=== PATIENT | female | born 1965 | race Caucasian/White ===

== ENCOUNTER 2016-05-22 15:38 | Emergency (ER) | payer MEDICARE, MEDICAID ==
--- NOTE | 2016-05-22 21:09 | RAD ---
CHEST TWO VIEWS 05/22/2016 COMPARISON: 10/22/2015 FINDINGS: The heart is normal in size. The lungs are hyperexpanded, consistent with a history of COPD. No ac little shell tribe infiltrate is appreciated. No effusions are seen. The mediastinum is unremarkable. IMPRESSION: Chronic obstructive pulmonary disease, but no acute findings. POS: HOME
== END 2016-05-22 16:30 | disposition home or self-care (01) ==
LOC: BURERS 15:38
DX: B34.9 Viral infection, unspecified (principal); J44.9 Chronic obstructive pulmonary disease, unspecified; F17.210 Nicotine dependence, cigarettes, uncomplicated
CPT/HCPCS: 71020; 99283

== ENCOUNTER 2016-06-20 15:23 | Outpatient (CLI) | payer MEDICARE, MEDICAID ==
[2016-06-20 15:41] LABS: #Basophils 0.1 thou/uL (0.0-0.2); #Eosinphils 0.1 thou/uL (0.0-0.7); #Lymphocytes 1.9 thou/uL (1.20-3.40); #Monocytes 0.9 thou/uL (0.11-0.59); #Neutrophils 4.8 thou/uL (1.40-6.50); %Basophils 1.9 % (0.0-1.0); %Eosinophils 0.8 % (0.0-10.0); %Lymphocytes 24.4 % (21.0-51.0); %Monocytes 11.3 % (0.0-10.0); %Neutrophils 61.6 % (42.0-75.0); Hemoglobin 16.5 g/dL (12.0-16.0); Mean Corpuscular HGB CONC 33.9 g/dL (32.0-36.0); Mean Corpuscular Hemoglobin 33.5 pg (27.0-31.0); Mean Corpuscular Volume 98.7 fl (81.0-99.0); Mean Platelet Volume 6.7 fL (7.4-10.4); Platelet Count 292 thou/uL (130-400); RBC Distribution Width 12.1 % (11.5-14.5); Red Blood Cell (RBC) Count 4.92 mill/uL (4.20-5.40); White Blood Cell (WBC) Count 7.8 thou/uL (4.8-10.8)
[2016-06-20 16:01] LABS: ALT (SGPT) 18 U/L (0-55); AST (SGOT) 22 U/L (5-34); Albumin 4.6 g/dL (3.5-5.0); Alkaline Phosphatase 102 U/L (40-150); Anion Gap 14 mmol/L (10-20); BUN (Urea Nitrogen) 6 mg/dL (7.0-18.7); Bilirubin, Total 0.4 mg/dL (0.2-1.2); Calc. Creatinine Clearance 0 mL/min (70-130); Calcium 9.6 mg/dL (7.8-10.44); Carbon Dioxide 28 mmol/L (22-29); Cardiac Risk 4.1 (Less than 4.5); Chloride 99 mmol/L (98-107); Cholesterol 205 mg/dL (< 200 Desired); Estimated GFR-MDRD Greater than 90; Globulin 2.2 g/dL (2.4-3.5); Glucose 82 mg/dL (70-105); HDL Cholesterol 50 mg/dL (>60 Neg Risk); LDL Cholesterol, Calculated 137 mg/dL; Potassium 5.2 mmol/L (3.5-5.1); Protein, Total 6.8 g/dL (6.0-8.3); Sodium 136 mmol/L (136-145); Triglycerides 92 mg/dL (Less than 150)
[2016-06-20 16:36] LABS: Thyroid Stimulating Hormone 1.7694 uIU/mL (0.35-4.94); Vitamin D, 25 Hydroxy 22.1 ng/mL (> 30.0)
== END 2016-06-20 15:24 ==
LOC: HPCALD 15:23
PROVIDERS: ATTEND Family Medicine
DX: Z13.6 Encounter for screening for cardiovascular disorders (principal); E55.9 Vitamin D deficiency, unspecified; I10 Essential (primary) hypertension; R53.83 Other fatigue; Z79.899 Other long term (current) drug therapy
CPT/HCPCS: 36415; 80053; 80061; 82306; 82607; 84443; 85025

== ENCOUNTER 2016-12-01 19:06 | Emergency (ER) | payer MEDICARE, MEDICAID ==
[2016-12-01] MEDS ORDERED: Cyclobenzaprine 10 MG TAB ONE (19:31)
== END 2016-12-01 19:36 | disposition home or self-care (01) ==
LOC: BURERS 19:06
DX: G44.209 Tension-type headache, unspecified, not intractable (principal); J44.9 Chronic obstructive pulmonary disease, unspecified; F32.9 Major depressive disorder, single episode, unspecified; F41.9 Anxiety disorder, unspecified; F17.210 Nicotine dependence, cigarettes, uncomplicated
CPT/HCPCS: 99283

== ENCOUNTER 2017-02-10 12:36 | Emergency (ER) | payer MEDICARE, MEDICAID ==
[2017-02-10] MEDS ORDERED: methylPREDNISolone Sod Succ/PF 125 MG/2 ML VIAL ONE (13:06)
[2017-02-10 13:16] LABS: #Basophils 0.2 thou/uL (0.0-0.2); #Lymphocytes 1.6 thou/uL (1.20-3.40); #Neutrophils 5.9 thou/uL (1.40-6.50); %Basophils 1.8 % (0.0-1.0); %Eosinophils 0.1 % (0.0-10.0); %Monocytes 11.2 % (0.0-10.0); Hemoglobin 16.1 g/dL (12.0-16.0); Mean Corpuscular HGB CONC 33.6 g/dL (32.0-36.0); Mean Corpuscular Hemoglobin 32.5 pg (27.0-31.0); Mean Corpuscular Volume 96.6 fl (81.0-99.0); Mean Platelet Volume 6.1 fL (7.4-10.4); Platelet Count 270 thou/uL (130-400); RBC Distribution Width 11.7 % (11.5-14.5); Red Blood Cell (RBC) Count 4.97 mill/uL (4.20-5.40); White Blood Cell (WBC) Count 8.6 thou/uL (4.8-10.8)
[2017-02-10 13:34] LABS: CKMB 1.7 ng/mL (0-6.6); Troponin I Less than 0.010 ng/mL (< 0.028)
--- NOTE | 2017-02-10 14:02 | RAD ---
CHEST 2 VIEWS: Date: 02/10/17 HISTORY: Dyspnea. COMPARISON: Chest dated 05/22/16. FINDINGS: Lungs are hyperinflated. There is scarring in both lung apices. Large bulla right upper lobe. There is opacity in the left lung base. IMPRESSION: 1. COPD. 2. Opacity left lung base may represent scarring versus less likely an infiltrate. Follow-up recomme nded. POS: [facility]
== END 2017-02-10 14:00 | disposition home or self-care (01) ==
LOC: BURERS 12:36
DX: J44.1 Chronic obstructive pulmonary disease with (acute) exacerbation (principal); F41.9 Anxiety disorder, unspecified; F32.9 Major depressive disorder, single episode, unspecified; F17.210 Nicotine dependence, cigarettes, uncomplicated
CPT/HCPCS: 71020; 82553; 83880; 84484; 85025; 94640; 96374; J2930; J7620

== ENCOUNTER 2017-03-24 11:56 | Inpatient (IN) | payer MEDICARE, MEDICAID ==
[2017-03-24] MEDS ORDERED: Cyclobenzaprine 10 MG TAB PO PRN (17:23)
[2017-03-24] MEDS ORDERED: Albuterol Sulfate 2.5 mg/3 ml Neb NEB PRN ×2 (17:23)
[2017-03-24] MEDS ORDERED: Calcium Carbonate 500 MG ChewTAB PO PRN (17:23)
[2017-03-24] MEDS ORDERED: PROVENTIL INHALER 6.7 G (200 INHALATIONS) INH PRN (17:23)
[2017-03-24] MEDS ORDERED: Lidocaine Viscous Sol 2% 15 ml UD Cup SSW PRN (17:23)
[2017-03-24] MEDS ORDERED: Loperamide HCl 2 MG CAP PO SCH (17:30)
[2017-03-24] MEDS ORDERED: ALPRAZolam 0.5 MG TAB PO PRN (17:36)
[2017-03-24] MEDS: Magnesium Oxide 400 MG TAB PO SCH (21:28)
[2017-03-24] MEDS: guaiFENesin ER 600 MG TAB PO SCH (21:28)
[2017-03-24] MEDS: Gabapentin 300 MG CAP PO SCH (21:29)
[2017-03-24] MEDS: Famotidine 20 MG TAB PO SCH (21:30)
[2017-03-24] MEDS: Vancomycin HCl 750 MG in Sodium Chloride 0.9% 250 ML 250 ML IVPB SCH (21:30)
[2017-03-24] MEDS: Megestrol Acetate 400 MG/10 ML UDCUP PO SCH (21:33)
[2017-03-24] MEDS: Mometasone/Formoterol 60 PUFF AER INH SCH (22:21)
[2017-03-24] MEDS ORDERED: Sodium Chloride 0.9% 10 ML ONE (22:42)
[2017-03-25] MEDS: Vancomycin HCl 750 MG in Sodium Chloride 0.9% 250 ML 250 ML IVPB SCH ×4 (02:19→21:07)
[2017-03-25] MEDS: Mometasone/Formoterol 60 PUFF AER INH SCH ×2 (06:16→18:15)
[2017-03-25] MEDS ORDERED: Sodium Chloride 0.9% 10 ML ONE (06:42)
[2017-03-25 07:14] LABS: Hemoglobin 10.8 g/dL (12.0-16.0); Mean Corpuscular HGB CONC 35.1 g/dL (32.0-36.0); Mean Corpuscular Volume 94.2 fl (81.0-99.0); Mean Platelet Volume 4.5 fL (7.4-10.4); Platelet Count 527 thou/uL (130-400); RBC Distribution Width 14.2 % (11.5-14.5); Red Blood Cell (RBC) Count 3.28 mill/uL (4.20-5.40); White Blood Cell (WBC) Count 23.1 thou/uL (4.8-10.8)
[2017-03-25 07:20] LABS: ALT (SGPT) 67 U/L (8-55); AST (SGOT) 29 U/L (5-34); Albumin 2.5 g/dL (3.5-5.0); Alkaline Phosphatase 55 U/L (40-150); Anion Gap 11 mmol/L (10-20); BUN (Urea Nitrogen) 11 mg/dL (7.0-18.7); Bilirubin, Total 0.3 mg/dL (0.2-1.2); Calc. Creatinine Clearance 0 mL/min (70-130); Calcium 8.2 mg/dL (7.8-10.44); Carbon Dioxide 30 mmol/L (22-29); Chloride 96 mmol/L (98-107); Estimated GFR-MDRD Greater than 90; Globulin 2.2 g/dL (2.4-3.5); Glucose 76 mg/dL (70-105); Potassium 3.9 mmol/L (3.5-5.1); Protein, Total 4.7 g/dL (6.0-8.3); Sodium 133 mmol/L (136-145)
[2017-03-25 07:33] LABS: MDiff Complete? YES
[2017-03-25 07:34] LABS: Band 4 % (5-11); Eosinophils 1 % (0-10); Lymphocytes 13 % (21-51); Metamyelocyte 2 % (0-0); Monocytes 4 % (0-10); Neutrophil 75 % (42-75); PLT Morphology Comment Appears Increased; RBC Morphology Normal; Reactive Lymphocytes 1 % (0-10); Vacuoles SLIGHT
[2017-03-25] MEDS ORDERED: Spiriva 18 MCG CAP (Box of 5 Caps) INH SCH (09:00)
[2017-03-25] MEDS: Famotidine 20 MG TAB PO SCH ×2 (09:33→21:13)
[2017-03-25] MEDS: guaiFENesin ER 600 MG TAB PO SCH ×2 (09:33→21:14)
[2017-03-25] MEDS: Fluconazole 100 MG TAB PO SCH (09:34)
[2017-03-25] MEDS: Magnesium Oxide 400 MG TAB PO SCH ×2 (09:34→21:16)
[2017-03-25] MEDS: Gabapentin 300 MG CAP PO SCH ×3 (09:34→21:16)
[2017-03-25] MEDS: Megestrol Acetate 400 MG/10 ML UDCUP PO SCH ×2 (09:35→21:16)
[2017-03-25 14:32] LABS: Vancomycin, Trough 15.2 ug/mL
[2017-03-25] MEDS ORDERED: Prevnar 13-Val Conj/PF 0.5 ML SYRINGE IM ONE (21:00)
[2017-03-26] MEDS: Vancomycin HCl 750 MG in Sodium Chloride 0.9% 250 ML 250 ML IVPB SCH ×4 (02:38→21:16)
[2017-03-26] MEDS: Mometasone/Formoterol 60 PUFF AER INH SCH ×2 (06:06→18:41)
[2017-03-26] MEDS: guaiFENesin ER 600 MG TAB PO SCH ×2 (08:22→21:18)
[2017-03-26] MEDS: Famotidine 20 MG TAB PO SCH ×2 (08:23→21:18)
[2017-03-26] MEDS: Magnesium Oxide 400 MG TAB PO SCH ×2 (08:23→21:17)
[2017-03-26] MEDS: Acetaminophen 325 MG TAB PO PRN (08:23)
[2017-03-26] MEDS: Fluconazole 100 MG TAB PO SCH (08:23)
[2017-03-26] MEDS: Gabapentin 300 MG CAP PO SCH ×3 (08:23→21:17)
[2017-03-26] MEDS: Megestrol Acetate 400 MG/10 ML UDCUP PO SCH ×2 (08:24→21:17)
[2017-03-26] MEDS: Lorazepam 0.5 MG TAB PO PRN ×2 (08:25→17:34)
--- NOTE | 2017-03-26 11:12 | RAD ---
CHEST 2 VIEWS: DATE: 03/26/17. FINDINGS: Comparison is made with the 03/23 study from [facility]. PA and lateral views today show a right l ower lobe infiltrate. It is more consistent with pneumonia than atelectasis. There is a small right pleural effusion. COPD is noted as usual. The lungs are otherwise clear. No pneumothorax is seen on today's study. A right central line remains in place. The heart size is normal. The trachea is midline. IMPRESSION: 1. Right lower lobe infiltrate more consistent with pneumonia than atelectasis. There is also a sma ll right pleural effusion today. 2. Chronic obstructive pulmonary disease. 3. No pneumothorax seen. POS: HOME
[2017-03-26] MEDS ORDERED: Polyethylene Glycol 3350 17 GM Packet PO PRN (12:04)
[2017-03-27] MEDS: Lorazepam 0.5 MG TAB PO PRN (00:52)
[2017-03-27] MEDS: Vancomycin HCl 750 MG in Sodium Chloride 0.9% 250 ML 250 ML IVPB SCH ×2 (00:52→08:49)
[2017-03-27] MEDS: Acetaminophen 325 MG TAB PO PRN (00:52)
[2017-03-27] MEDS: Mometasone/Formoterol 60 PUFF AER INH SCH ×2 (05:41→20:45)
[2017-03-27] MEDS: Megestrol Acetate 400 MG/10 ML UDCUP PO SCH ×2 (08:49→21:44)
[2017-03-27] MEDS: guaiFENesin ER 600 MG TAB PO SCH ×2 (08:51→21:44)
[2017-03-27] MEDS: Famotidine 20 MG TAB PO SCH ×2 (08:51→21:44)
[2017-03-27] MEDS: Magnesium Oxide 400 MG TAB PO SCH ×2 (08:51→21:44)
[2017-03-27] MEDS: Gabapentin 300 MG CAP PO SCH ×3 (08:52→21:44)
[2017-03-27] MEDS: Fluconazole 100 MG TAB PO SCH (08:52)
[2017-03-27] MEDS ORDERED: ALPRAZolam 0.5 MG TAB PO PRN (10:45)
[2017-03-27] MEDS ORDERED: Cyclobenzaprine 10 MG TAB PO PRN (10:45)
[2017-03-27] MEDS ORDERED: PROVENTIL INHALER 6.7 G (200 INHALATIONS) INH PRN (10:45)
[2017-03-27] MEDS: VANCOMYCIN HCL IVPB SCH ×2 (14:18→21:39)
[2017-03-27] MEDS: SODIUM CHLORIDE 0.9% IVPB SCH ×2 (14:18→21:39)
[2017-03-28] MEDS: VANCOMYCIN HCL IVPB SCH ×3 (02:04→15:13)
[2017-03-28] MEDS: SODIUM CHLORIDE 0.9% IVPB SCH ×3 (02:04→15:13)
[2017-03-28] MEDS: Mometasone/Formoterol 60 PUFF AER INH SCH ×2 (06:27→17:35)
[2017-03-28] MEDS: Lorazepam 0.5 MG TAB PO PRN ×2 (06:27→15:25)
[2017-03-28] MEDS: Magnesium Oxide 400 MG TAB PO SCH ×2 (09:10→21:43)
[2017-03-28] MEDS: guaiFENesin ER 600 MG TAB PO SCH ×2 (09:10→21:42)
[2017-03-28] MEDS: Megestrol Acetate 400 MG/10 ML UDCUP PO SCH ×2 (09:10→23:00)
[2017-03-28] MEDS: Fluconazole 100 MG TAB PO SCH (09:11)
[2017-03-28] MEDS: Gabapentin 300 MG CAP PO SCH ×3 (09:12→21:43)
[2017-03-28] MEDS: Famotidine 20 MG TAB PO SCH ×2 (09:12→21:43)
[2017-03-28] MEDS ORDERED: Cepastat Lozenges 1 LOZ PO PRN (11:45)
[2017-03-28 13:30] LABS: Vancomycin, Trough 12.1 ug/mL
[2017-03-28] MEDS: Vancomycin HCl 1 GM in Sodium Chloride 0.9% 250 ML 250 ML IVPB SCH ×2 (15:28→21:39)
[2017-03-29] MEDS: Vancomycin HCl 1 GM in Sodium Chloride 0.9% 250 ML 250 ML IVPB SCH ×2 (03:23→11:40)
[2017-03-29 08:42] LABS: Vancomycin, Trough 11.3 ug/mL
[2017-03-29] MEDS: Famotidine 20 MG TAB PO SCH ×2 (10:26→21:29)
[2017-03-29] MEDS: Mometasone/Formoterol 60 PUFF AER INH SCH ×3 (10:26→18:31)
[2017-03-29] MEDS: Fluconazole 100 MG TAB PO SCH (10:27)
[2017-03-29] MEDS: Gabapentin 300 MG CAP PO SCH ×3 (10:27→21:29)
[2017-03-29] MEDS: guaiFENesin ER 600 MG TAB PO SCH ×2 (10:28→21:29)
[2017-03-29] MEDS: Megestrol Acetate 400 MG/10 ML UDCUP PO SCH ×2 (10:28→21:29)
[2017-03-29] MEDS: Magnesium Oxide 400 MG TAB PO SCH ×2 (10:28→21:29)
[2017-03-29] MEDS: Lorazepam 0.5 MG TAB PO PRN (10:31)
[2017-03-29] MEDS: Vancomycin HCl 750 MG in Sodium Chloride 0.9% 250 ML 250 ML IVPB SCH ×3 (10:34→21:40)
[2017-03-29] MEDS ORDERED: Vancomycin HCl 500 MG in Sodium Chloride 0.9% 100 ML IVPB SCH (11:00)
[2017-03-29] MEDS ORDERED: SODIUM CHLORIDE 0.9% IVPB SCH (11:00)
[2017-03-29] MEDS ORDERED: VANCOMYCIN HCL IVPB SCH (11:00)
[2017-03-29] MEDS: SODIUM CHLORIDE 0.9% IVPB SCH ×2 (16:13→21:49)
[2017-03-29] MEDS: VANCOMYCIN HCL IVPB SCH ×2 (16:13→21:49)
[2017-03-29] MEDS: Acetaminophen 325 MG TAB PO PRN (18:31)
--- NOTE | 2017-03-29 20:06 | RAD ---
CHEST TWO VIEWS 03/29/17 Comparison is made with the 03/26 study. Again seen is a dense right lower consolidation that is presumably pneumonia. It has perhaps improved very slightly in the interval, but the changes are small. No new infiltrates are seen. there is stil l a small amount of pleural fluid on the right. No pneumothorax is seen today. The heart size normal. COPD predominates. IMPRESSION: Right lower lobe consolidation. Any improvement since 03/26 is minimal. POS: HOME
[2017-03-30 03:29] LABS: Vancomycin, Trough 18.6 ug/mL
[2017-03-30 03:33] LABS: #Basophils 0.2 thou/uL (0.0-0.2); #Lymphocytes 1.7 thou/uL (1.20-3.40); #Monocytes 0.7 thou/uL (0.11-0.59); #Neutrophils 8.6 thou/uL (1.40-6.50); %Basophils 1.8 % (0.0-1.0); %Eosinophils 0.4 % (0.0-10.0); %Lymphocytes 15.4 % (21.0-51.0); %Monocytes 6.2 % (0.0-10.0); %Neutrophils 76.2 % (42.0-75.0); Hemoglobin 8.9 g/dL (12.0-16.0); Mean Corpuscular HGB CONC 34.1 g/dL (32.0-36.0); Mean Corpuscular Hemoglobin 31.4 pg (27.0-31.0); Mean Corpuscular Volume 92.1 fl (81.0-99.0); Mean Platelet Volume 4.8 fL (7.4-10.4); Platelet Count 360 thou/uL (130-400); RBC Distribution Width 13.8 % (11.5-14.5); Red Blood Cell (RBC) Count 2.84 mill/uL (4.20-5.40); White Blood Cell (WBC) Count 11.3 thou/uL (4.8-10.8)
[2017-03-30 03:34] LABS: ALT (SGPT) 108 U/L (8-55); AST (SGOT) 58 U/L (5-34); Albumin 2.6 g/dL (3.5-5.0); Alkaline Phosphatase 66 U/L (40-150); Anion Gap 12 mmol/L (10-20); BUN (Urea Nitrogen) 8 mg/dL (7.0-18.7); Bilirubin, Total 0.2 mg/dL (0.2-1.2); Calc. Creatinine Clearance 100 mL/min (70-130); Calcium 8.2 mg/dL (7.8-10.44); Carbon Dioxide 25 mmol/L (22-29); Chloride 98 mmol/L (98-107); Estimated GFR-MDRD Greater than 90; Globulin 2.5 g/dL (2.4-3.5); Glucose 135 mg/dL (70-105); Potassium 3.9 mmol/L (3.5-5.1); Protein, Total 5.1 g/dL (6.0-8.3); Sodium 131 mmol/L (136-145)
[2017-03-30] MEDS: Vancomycin HCl 750 MG in Sodium Chloride 0.9% 250 ML 250 ML IVPB SCH ×4 (04:18→21:25)
[2017-03-30] MEDS: VANCOMYCIN HCL IVPB SCH ×4 (04:18→23:12)
[2017-03-30] MEDS: SODIUM CHLORIDE 0.9% IVPB SCH ×4 (04:18→23:12)
[2017-03-30] MEDS: Mometasone/Formoterol 60 PUFF AER INH SCH ×2 (06:48→18:31)
[2017-03-30] MEDS: Megestrol Acetate 400 MG/10 ML UDCUP PO SCH ×2 (09:41→21:28)
[2017-03-30] MEDS: Lorazepam 0.5 MG TAB PO PRN (09:41)
[2017-03-30] MEDS: Fluconazole 100 MG TAB PO SCH (09:43)
[2017-03-30] MEDS: Famotidine 20 MG TAB PO SCH ×2 (09:43→21:27)
[2017-03-30] MEDS: guaiFENesin ER 600 MG TAB PO SCH ×2 (09:43→21:26)
[2017-03-30] MEDS: Gabapentin 300 MG CAP PO SCH ×3 (09:44→21:27)
[2017-03-30] MEDS: Magnesium Oxide 400 MG TAB PO SCH ×2 (09:44→21:27)
[2017-03-31 03:43] LABS: Vancomycin, Trough 18.1 ug/mL
[2017-03-31] MEDS: Vancomycin HCl 750 MG in Sodium Chloride 0.9% 250 ML 250 ML IVPB SCH ×4 (04:19→22:11)
[2017-03-31] MEDS: SODIUM CHLORIDE 0.9% IVPB SCH ×4 (04:20→22:12)
[2017-03-31] MEDS: VANCOMYCIN HCL IVPB SCH ×4 (04:20→22:12)
[2017-03-31] MEDS: Mometasone/Formoterol 60 PUFF AER INH SCH ×2 (06:36→19:02)
[2017-03-31] MEDS: Megestrol Acetate 400 MG/10 ML UDCUP PO SCH ×2 (09:26→22:11)
[2017-03-31] MEDS: Magnesium Oxide 400 MG TAB PO SCH ×2 (09:28→22:13)
[2017-03-31] MEDS: Famotidine 20 MG TAB PO SCH ×2 (09:28→22:13)
[2017-03-31] MEDS: Gabapentin 300 MG CAP PO SCH ×3 (09:28→22:12)
[2017-03-31] MEDS: guaiFENesin ER 600 MG TAB PO SCH ×2 (09:28→22:13)
[2017-03-31] MEDS: Acetaminophen 325 MG TAB PO PRN (10:57)
[2017-04-01] MEDS: Vancomycin HCl 750 MG in Sodium Chloride 0.9% 250 ML 250 ML IVPB SCH ×3 (03:44→15:58)
[2017-04-01] MEDS: SODIUM CHLORIDE 0.9% IVPB SCH ×2 (03:45→09:55)
[2017-04-01] MEDS: VANCOMYCIN HCL IVPB SCH ×2 (03:45→09:55)
[2017-04-01 04:35] LABS: #Basophils 0.1 thou/uL (0.0-0.2); #Lymphocytes 1.9 thou/uL (1.20-3.40); #Monocytes 0.9 thou/uL (0.11-0.59); #Neutrophils 10.4 thou/uL (1.40-6.50); %Basophils 1.1 % (0.0-1.0); %Eosinophils 0.3 % (0.0-10.0); %Monocytes 6.7 % (0.0-10.0); %Neutrophils 77.9 % (42.0-75.0); Mean Corpuscular HGB CONC 34.6 g/dL (32.0-36.0); Mean Corpuscular Hemoglobin 32.1 pg (27.0-31.0); Mean Corpuscular Volume 92.7 fl (81.0-99.0); Mean Platelet Volume 4.7 fL (7.4-10.4); Platelet Count 325 thou/uL (130-400); RBC Distribution Width 14.2 % (11.5-14.5); Red Blood Cell (RBC) Count 2.81 mill/uL (4.20-5.40); White Blood Cell (WBC) Count 13.4 thou/uL (4.8-10.8)
[2017-04-01 04:43] LABS: ALT (SGPT) 105 U/L (8-55); AST (SGOT) 41 U/L (5-34); Albumin 2.7 g/dL (3.5-5.0); Alkaline Phosphatase 67 U/L (40-150); Anion Gap 14 mmol/L (10-20); BUN (Urea Nitrogen) 7 mg/dL (7.0-18.7); Bilirubin, Total 0.2 mg/dL (0.2-1.2); Calc. Creatinine Clearance 102 mL/min (70-130); Calcium 8.5 mg/dL (7.8-10.44); Carbon Dioxide 25 mmol/L (22-29); Chloride 94 mmol/L (98-107); Estimated GFR-MDRD Greater than 90; Globulin 2.8 g/dL (2.4-3.5); Glucose 100 mg/dL (70-105); Potassium 3.9 mmol/L (3.5-5.1); Protein, Total 5.5 g/dL (6.0-8.3); Sodium 129 mmol/L (136-145)
[2017-04-01] MEDS: Mometasone/Formoterol 60 PUFF AER INH SCH ×2 (06:18→18:25)
--- NOTE | 2017-04-01 07:38 | RAD ---
PORTABLE CHEST: Date: 04/01/17 An AP portable film at 0533 hours is compared with the 03/29/17 study. There continues to be really l ittle change. There has been no improvement over the interval. There is still a right lower lobe infi ltrate which has not cleared. The left lung remains clear. COPD is present as usual. Heart size is no rmal. There are no congestive changes. The right central line remains in place. IMPRESSION: No improvement since 03/29/17. POS: HOME
[2017-04-01] MEDS: Megestrol Acetate 400 MG/10 ML UDCUP PO SCH ×2 (09:50→22:16)
[2017-04-01] MEDS: Gabapentin 300 MG CAP PO SCH ×3 (09:53→22:16)
[2017-04-01] MEDS: Famotidine 20 MG TAB PO SCH ×2 (09:53→22:16)
[2017-04-01] MEDS: guaiFENesin ER 600 MG TAB PO SCH ×2 (09:53→22:16)
[2017-04-01] MEDS: Magnesium Oxide 400 MG TAB PO SCH ×2 (09:53→22:16)
[2017-04-01] MEDS: Lorazepam 0.5 MG TAB PO PRN (11:40)
[2017-04-01] MEDS ORDERED: Linezolid 600 MG in Premix Bag 1 BAG IVPB SCH (21:00)
[2017-04-02] MEDS: Mometasone/Formoterol 60 PUFF AER INH SCH ×2 (06:38→18:18)
[2017-04-02] MEDS: Megestrol Acetate 400 MG/10 ML UDCUP PO SCH ×2 (08:57→21:59)
[2017-04-02] MEDS: Famotidine 20 MG TAB PO SCH ×2 (08:59→21:58)
[2017-04-02] MEDS: Linezolid 600 MG TAB PO SCH ×2 (08:59→21:58)
[2017-04-02] MEDS: guaiFENesin ER 600 MG TAB PO SCH ×2 (09:00→21:58)
[2017-04-02] MEDS: Gabapentin 300 MG CAP PO SCH ×3 (09:00→21:58)
[2017-04-02] MEDS: Magnesium Oxide 400 MG TAB PO SCH ×2 (09:01→21:58)
[2017-04-02] MEDS: Acetaminophen 325 MG TAB PO PRN (22:18)
[2017-04-03 02:36] VITALS: BMI 18.6
[2017-04-03] MEDS: Mometasone/Formoterol 60 PUFF AER INH SCH ×2 (06:46→17:21)
[2017-04-03] MEDS: Linezolid 600 MG TAB PO SCH ×2 (09:32→22:15)
[2017-04-03] MEDS: Famotidine 20 MG TAB PO SCH ×2 (09:33→22:14)
[2017-04-03] MEDS: Gabapentin 300 MG CAP PO SCH ×3 (09:33→22:14)
[2017-04-03] MEDS: Magnesium Oxide 400 MG TAB PO SCH ×2 (09:34→22:14)
[2017-04-03] MEDS: guaiFENesin ER 600 MG TAB PO SCH ×2 (09:34→22:14)
[2017-04-03] MEDS: Megestrol Acetate 400 MG/10 ML UDCUP PO SCH ×2 (09:35→22:14)
[2017-04-04] MEDS: Acetaminophen 325 MG TAB PO PRN (01:49)
[2017-04-04] MEDS: Mometasone/Formoterol 60 PUFF AER INH SCH ×2 (06:36→18:38)
[2017-04-04] MEDS: guaiFENesin ER 600 MG TAB PO SCH ×2 (09:40→22:09)
[2017-04-04] MEDS: Gabapentin 300 MG CAP PO SCH ×3 (09:40→22:10)
[2017-04-04] MEDS: Megestrol Acetate 400 MG/10 ML UDCUP PO SCH ×2 (09:40→22:10)
[2017-04-04] MEDS: Famotidine 20 MG TAB PO SCH ×2 (09:40→22:10)
[2017-04-04] MEDS: Magnesium Oxide 400 MG TAB PO SCH ×2 (09:40→22:10)
[2017-04-04] MEDS: Linezolid 600 MG TAB PO SCH ×2 (09:41→22:08)
[2017-04-04] MEDS: ALPRAZolam 0.5 MG TAB PO PRN (11:28)
[2017-04-04] MEDS: Lorazepam 0.5 MG TAB PO PRN (22:09)
[2017-04-05 05:16] LABS: Hemoglobin 9.2 g/dL (12.0-16.0); Mean Corpuscular Volume 95.1 fL (81.0-99.0); White Blood Cell (WBC) Count 11.9 thou/uL (4.8-10.8)
[2017-04-05 05:17] LABS: #Basophils 0.1 thou/uL (0.0-0.2); #Eosinphils 0.1 thou/uL (0.0-0.7); #Lymphocytes 2.3 thou/uL (1.20-3.40); #Monocytes 1.1 thou/uL (0.11-0.59); #Neutrophils 8.3 thou/uL (1.40-6.50); %Eosinophils 0.6 % (0.0-10.0); %Lymphocytes 19.5 % (21.0-51.0); %Monocytes 9.1 % (0.0-10.0); %Neutrophils 69.7 % (42.0-75.0); Mean Corpuscular HGB CONC 33.4 g/dL (32.0-36.0); Mean Corpuscular Hemoglobin 31.8 pg (27.0-31.0); Mean Platelet Volume 5.7 fL (7.4-10.4); Platelet Count 402 thou/uL (130-400); RBC Distribution Width 14.5 % (11.5-14.5)
[2017-04-05 05:24] LABS: ALT (SGPT) 113 U/L (8-55); AST (SGOT) 38 U/L (5-34); Albumin 2.9 g/dL (3.5-5.0); Alkaline Phosphatase 69 U/L (40-150); Anion Gap 15 mmol/L (10-20); BUN (Urea Nitrogen) 9 mg/dL (7.0-18.7); Bilirubin, Total 0.2 mg/dL (0.2-1.2); Calc. Creatinine Clearance 98 mL/min (70-130); Calcium 8.6 mg/dL (7.8-10.44); Carbon Dioxide 27 mmol/L (22-29); Chloride 93 mmol/L (98-107); Estimated GFR-MDRD Greater than 90; Globulin 2.9 g/dL (2.4-3.5); Glucose 132 mg/dL (70-105); Potassium 3.8 mmol/L (3.5-5.1); Protein, Total 5.8 g/dL (6.0-8.3); Sodium 131 mmol/L (136-145)
[2017-04-05 05:30] LABS: Anisocytosis SLIGHT = 6-15 cells (100X) (0-5/hpf)
[2017-04-05 05:31] LABS: PLT Morphology Comment Appears Increased
[2017-04-05] MEDS: Mometasone/Formoterol 60 PUFF AER INH SCH ×2 (06:22→18:31)
[2017-04-05] MEDS: guaiFENesin ER 600 MG TAB PO SCH ×2 (09:57→21:11)
[2017-04-05] MEDS: Megestrol Acetate 400 MG/10 ML UDCUP PO SCH ×2 (09:57→21:12)
[2017-04-05] MEDS: Famotidine 20 MG TAB PO SCH ×2 (09:58→21:11)
[2017-04-05] MEDS: Gabapentin 300 MG CAP PO SCH ×3 (09:58→21:10)
[2017-04-05] MEDS: Linezolid 600 MG TAB PO SCH ×2 (09:58→21:08)
[2017-04-05] MEDS: Magnesium Oxide 400 MG TAB PO SCH ×2 (09:58→21:09)
[2017-04-05] MEDS: ALPRAZolam 0.5 MG TAB PO PRN (09:58)
--- NOTE | 2017-04-05 19:50 | RAD ---
CHEST TWO VIEWS 04/05/17 Comparison is made with the 04/01 study. COPD is present as usual. There continues to be a large infiltrative area in the right lower lobe pos teriorly. Overall, it has not changed recently, though it is certainly better than it was in . The left lung remains relatively clear. There is no vascular congestion or edema. The heart size is normal. IMPRESSION: Little change in the dense right lower lobe consolidation over the last few days. POS: HOME
[2017-04-05] MEDS: Acetaminophen 325 MG TAB PO PRN (21:17)
[2017-04-06] MEDS: Mometasone/Formoterol 60 PUFF AER INH SCH ×2 (06:04→18:40)
[2017-04-06] MEDS: Megestrol Acetate 400 MG/10 ML UDCUP PO SCH ×2 (09:51→20:24)
[2017-04-06] MEDS: Linezolid 600 MG TAB PO SCH ×2 (09:53→20:26)
[2017-04-06] MEDS: Magnesium Oxide 400 MG TAB PO SCH ×2 (09:53→20:26)
[2017-04-06] MEDS: Famotidine 20 MG TAB PO SCH ×2 (09:53→20:26)
[2017-04-06] MEDS: Gabapentin 300 MG CAP PO SCH ×3 (09:54→20:26)
[2017-04-06] MEDS: guaiFENesin ER 600 MG TAB PO SCH ×2 (09:54→20:26)
[2017-04-06] MEDS: ALPRAZolam 0.5 MG TAB PO PRN (10:01)
[2017-04-06] MEDS: Acetaminophen 325 MG TAB PO PRN ×2 (11:02→20:31)
[2017-04-07 05:43] LABS: #Basophils 0.1 thou/uL (0.0-0.2); #Eosinphils 0.1 thou/uL (0.0-0.7); #Lymphocytes 2.2 thou/uL (1.20-3.40); #Monocytes 1.8 thou/uL (0.11-0.59); #Neutrophils 15.2 thou/uL (1.40-6.50); %Basophils 0.7 % (0.0-1.0); %Eosinophils 0.4 % (0.0-10.0); %Lymphocytes 11.3 % (21.0-51.0); %Monocytes 9.1 % (0.0-10.0); %Neutrophils 78.5 % (42.0-75.0); Hemoglobin 9.7 g/dL (12.0-16.0); Mean Corpuscular HGB CONC 32.9 g/dL (32.0-36.0); Mean Corpuscular Hemoglobin 31.5 pg (27.0-31.0); Mean Corpuscular Volume 95.6 fl (81.0-99.0); Mean Platelet Volume 5.8 fL (7.4-10.4); Platelet Count 460 thou/uL (130-400); RBC Distribution Width 15.2 % (11.5-14.5); Red Blood Cell (RBC) Count 3.09 mill/uL (4.20-5.40); White Blood Cell (WBC) Count 19.3 thou/uL (4.8-10.8)
[2017-04-07 05:56] LABS: ALT (SGPT) 111 U/L (8-55); AST (SGOT) 40 U/L (5-34); Alkaline Phosphatase 72 U/L (40-150); Anion Gap 14 mmol/L (10-20); BUN (Urea Nitrogen) 7 mg/dL (7.0-18.7); Bilirubin, Total 0.3 mg/dL (0.2-1.2); Calc. Creatinine Clearance 98 mL/min (70-130); Calcium 8.8 mg/dL (7.8-10.44); Carbon Dioxide 30 mmol/L (22-29); Chloride 94 mmol/L (98-107); Estimated GFR-MDRD Greater than 90; Glucose 98 mg/dL (70-105); Potassium 4.1 mmol/L (3.5-5.1); Sodium 134 mmol/L (136-145)
[2017-04-07] MEDS: Mometasone/Formoterol 60 PUFF AER INH SCH ×2 (06:15→18:30)
[2017-04-07] MEDS: Acetaminophen 325 MG TAB PO PRN ×2 (06:23→17:18)
[2017-04-07] MEDS: Megestrol Acetate 400 MG/10 ML UDCUP PO SCH ×2 (09:25→21:41)
[2017-04-07] MEDS: Gabapentin 300 MG CAP PO SCH ×3 (09:28→21:41)
[2017-04-07] MEDS: Famotidine 20 MG TAB PO SCH ×2 (09:28→21:42)
[2017-04-07] MEDS: Linezolid 600 MG TAB PO SCH ×2 (09:28→21:40)
[2017-04-07] MEDS: guaiFENesin ER 600 MG TAB PO SCH ×2 (09:29→21:40)
[2017-04-07] MEDS: Magnesium Oxide 400 MG TAB PO SCH ×2 (09:29→21:40)
[2017-04-07] MEDS: Fluconazole 100 MG TAB PO SCH (09:32)
[2017-04-07] MEDS: ALPRAZolam 0.5 MG TAB PO PRN (09:41)
[2017-04-08] MEDS: Acetaminophen 325 MG TAB PO PRN ×3 (05:13→20:53)
[2017-04-08] MEDS: Mometasone/Formoterol 60 PUFF AER INH SCH ×2 (06:19→19:16)
[2017-04-08] MEDS: Linezolid 600 MG TAB PO SCH ×2 (08:54→20:52)
[2017-04-08] MEDS: Magnesium Oxide 400 MG TAB PO SCH ×2 (08:55→20:53)
[2017-04-08] MEDS: guaiFENesin ER 600 MG TAB PO SCH ×2 (08:55→20:52)
[2017-04-08] MEDS: Megestrol Acetate 400 MG/10 ML UDCUP PO SCH ×2 (08:55→20:54)
[2017-04-08] MEDS: Gabapentin 300 MG CAP PO SCH ×3 (08:55→20:53)
[2017-04-08] MEDS: Famotidine 20 MG TAB PO SCH ×2 (08:55→20:53)
[2017-04-08] MEDS: Fluconazole 100 MG TAB PO SCH (08:56)
[2017-04-09] MEDS: Mometasone/Formoterol 60 PUFF AER INH SCH ×2 (06:10→18:49)
[2017-04-09] MEDS: Megestrol Acetate 400 MG/10 ML UDCUP PO SCH ×2 (09:48→21:07)
[2017-04-09] MEDS: Gabapentin 300 MG CAP PO SCH ×3 (09:48→21:10)
[2017-04-09] MEDS: Linezolid 600 MG TAB PO SCH ×2 (09:48→21:08)
[2017-04-09] MEDS: Magnesium Oxide 400 MG TAB PO SCH ×2 (09:49→21:08)
[2017-04-09] MEDS: Famotidine 20 MG TAB PO SCH ×2 (09:49→21:10)
[2017-04-09] MEDS: guaiFENesin ER 600 MG TAB PO SCH ×2 (09:50→21:09)
[2017-04-09] MEDS: Fluconazole 100 MG TAB PO SCH (09:50)
[2017-04-09] MEDS: ALPRAZolam 0.5 MG TAB PO PRN ×2 (09:55→21:14)
[2017-04-09] MEDS: Acetaminophen 325 MG TAB PO PRN ×2 (11:51→18:56)
[2017-04-10] MEDS: Acetaminophen 325 MG TAB PO PRN (03:57)
[2017-04-10 05:46] VITALS: BP 127/74; TEMP 99.2
[2017-04-10 05:47] LABS: #Basophils 0.1 thou/uL (0.0-0.2); #Eosinphils 0.1 thou/uL (0.0-0.7); #Lymphocytes 2.6 thou/uL (1.20-3.40); #Monocytes 1.7 thou/uL (0.11-0.59); #Neutrophils 13.4 thou/uL (1.40-6.50); %Basophils 0.7 % (0.0-1.0); %Eosinophils 0.4 % (0.0-10.0); %Lymphocytes 14.4 % (21.0-51.0); %Monocytes 9.2 % (0.0-10.0); %Neutrophils 75.2 % (42.0-75.0); Hemoglobin 9.5 g/dL (12.0-16.0); Mean Corpuscular HGB CONC 33.9 g/dL (32.0-36.0); Mean Corpuscular Hemoglobin 31.9 pg (27.0-31.0); Mean Platelet Volume 5.3 fL (7.4-10.4); Platelet Count 565 thou/uL (130-400); Red Blood Cell (RBC) Count 2.99 mill/uL (4.20-5.40); White Blood Cell (WBC) Count 17.9 thou/uL (4.8-10.8)
[2017-04-10 05:56] LABS: ALT (SGPT) 71 U/L (8-55); AST (SGOT) 34 U/L (5-34); Albumin 2.9 g/dL (3.5-5.0); Alkaline Phosphatase 67 U/L (40-150); Anion Gap 14 mmol/L (10-20); BUN (Urea Nitrogen) 6 mg/dL (7.0-18.7); Bilirubin, Total 0.4 mg/dL (0.2-1.2); Calc. Creatinine Clearance 97 mL/min (70-130); Calcium 8.7 mg/dL (7.8-10.44); Carbon Dioxide 27 mmol/L (22-29); Chloride 97 mmol/L (98-107); Estimated GFR-MDRD Greater than 90; Globulin 3.1 g/dL (2.4-3.5); Glucose 106 mg/dL (70-105); Sodium 134 mmol/L (136-145)
[2017-04-10] MEDS: Mometasone/Formoterol 60 PUFF AER INH SCH (06:18)
--- NOTE | 2017-04-10 07:32 | RAD ---
CHEST 2 VIEWS: DATE: 04/10/17. FINDINGS: Comparison is made with the 04/05 study. The right basilar infiltrate and density is increasing since 04/05. A minimal pleural effusion was present before. It is slightly larger today. Thus, the sylvester ent is worsening over time. The left lung remains clear. The heart is normal in size. There are no congestive changes. IMPRESSION: Worsening infiltrative changes and slight increase in pleural fluid on the right since 04/05. CODE T POS: HOME
--- NOTE | 2017-04-10 08:19 | DIS ---
DATE OF ADMISSION: 03/24/2017 DATE OF DISCHARGE: 04/10/2017 ADMISSION DIAGNOSES: Methicillin-resistant Staphylococcus aureus pneumonia, chronic obstructive pulmonary disease, oral thrush, anxiety, physical deconditioning, malnutrition, peripheral neuropathy, sacral ulcer. PROCEDURES: Serial chest x-rays. See reports. HOSPITAL COURSE: A 51-year-old female with oxygen-dependent COPD. She initially was admitted at [facility] in [place] for MRSA pneumonia affecting her right lower lobe with development of empyema status post decortication and chest tube placement. The patient had her chest tube pulled prior to discharge to our facility, so she could participate with physical therapy and occupational therapy. She was to complete a 2-week course of vancomycin which she has done effectively. Due to her persistent leukocytosis and minimally improving chest x-ray, Dr. Santiago was contacted last weekend by the on-call physician, Dr. Lunsford, and he advised to continue the patient on an additional 4-5 days of Zyvox. This was continued and as noted, the chest x-ray remains largely unchanged, thus I spoke with this patient's elevator repairer, Dr. Arevalo, who advised that due to the nature of the empyema and decortication that her chest x-ray would unlikely show specific improvement for some time, more so will be looking for patient's improvement physically/clinically at this point; the patient has been advised to follow up with Dr. Arevalo in 4-6 weeks for repeat chest x-ray. The patient's chest tube sites satisfactorily healed and she improved from a physical therapy standpoint to the point where she is able to return to her home setting with further therapy via [facility]. She does have home oxygen and has been arranged for her to have a rollator to enable further safe ambulation at her home. The patient has remained afebrile throughout her stay and is amenable to discharge at this time. DISPOSITION: She will be discharged to her home with further care via [facility]. She will follow up with myself in clinic next week and with Dr. Arevalo in the next 4-6 weeks with a repeat chest x-ray. DISCHARGE MEDICATIONS: Tylenol 650 mg p.o. q.4 hours p.r.n., albuterol nebs 2.5 mg q.2 hours p.r.n., Proventil 2 puffs inhaled q.4-6 hours p.r.n., DuoNeb p.r.n., alprazolam 0.25 mg p.o. b.i.d. p.r.n., calcium carbonate 1000 mg p.o. q.6 hours, Flexeril 10 mg p.o. t.i.d. p.r.n., gabapentin 300 mg p.o. t.i.d., Mucinex 1200 mg p.o. b.i.d., magnesium oxide 400 mg p.o. b.i.d., Megace 20 mg p.o. b.i.d., Symbicort 2 puffs b.i.d., Protonix 40 mg p.o. daily, MiraLax 17 grams p.o. daily p.r.n., and Spiriva 1 inhalation daily. MTDD
[2017-04-10] MEDS ORDERED: Linezolid 600 MG TAB ONE (09:00)
[2017-04-10] MEDS: Magnesium Oxide 400 MG TAB PO SCH (09:34)
[2017-04-10] MEDS: Famotidine 20 MG TAB PO SCH (09:34)
[2017-04-10] MEDS: Gabapentin 300 MG CAP PO SCH (09:35)
[2017-04-10] MEDS: guaiFENesin ER 600 MG TAB PO SCH (09:35)
[2017-04-10] MEDS: Fluconazole 100 MG TAB PO SCH (09:35)
[2017-04-10] MEDS: Megestrol Acetate 400 MG/10 ML UDCUP PO SCH (09:36)
[2017-04-10] MEDS: ALPRAZolam 0.5 MG TAB PO PRN (09:42)
[2017-04-10] MEDS: Linezolid 600 MG TAB PO SCH (11:03)
== END 2017-04-10 13:06 | disposition home or self-care (01) | DRG 178 ==
LOC: BURMED 14:44
PROVIDERS: ADMIT Family Medicine; ATTEND Family Medicine
DX: J15.212 Pneumonia due to Methicillin resistant Staphylococcus aureus (principal); B37.0 Candidal stomatitis; L89.152 Pressure ulcer of sacral region, stage 2; E46 Unspecified protein-calorie malnutrition; Z99.81 Dependence on supplemental oxygen; G62.9 Polyneuropathy, unspecified; Z68.1 Body mass index [BMI] 19.9 or less, adult; J44.9 Chronic obstructive pulmonary disease, unspecified; F41.9 Anxiety disorder, unspecified; K21.9 Gastro-esophageal reflux disease without esophagitis; I10 Essential (primary) hypertension; Z87.891 Personal history of nicotine dependence; Z87.11 Personal history of peptic ulcer disease; Z88.5 Allergy status to narcotic agent; Z88.2 Allergy status to sulfonamides; Z79.899 Other long term (current) drug therapy
CPT/HCPCS: 36415; 71045; 71046; 80053; 80202; 85025; 90471; 90670; 94640; 94664; A4216; G0009; G8978-GP-CJ; G8979-GP-CI; G8987-GO-CK; G8988-GO-CI; J1642; J3370; J7050; J7620

== ENCOUNTER 2017-05-02 12:02 | Outpatient (CLI) | payer MEDICARE, MEDICAID ==
--- NOTE | 2017-05-02 13:28 | RAD ---
PA AND LATERAL CHEST: History: Emphysema. Comparison: 04-10-17 FINDINGS/IMPRESSION: Changes of COPD are again seen. The patchy density in the right lower lung demonstrates interval impr ovement without complete resolution. Continued follow up is recommended. POS: [facility]
== END 2017-05-02 12:03 | disposition home or self-care (01) ==
LOC: BURRAD 12:02
PROVIDERS: ATTEND Family Medicine
DX: J86.9 Pyothorax without fistula (principal); R91.8 Other nonspecific abnormal finding of lung field
CPT/HCPCS: 71046

== ENCOUNTER 2017-05-09 15:26 | Outpatient (CLI) | payer MEDICARE, MEDICAID ==
--- NOTE | 2017-05-09 21:00 | RAD ---
CHEST TWO VIEWS: 05/09/17 Comparison is made with the 05/02 study. The appearance of the pleural based process in the right posterior lower chest has not changed marked ly in the interval. An right pleural based density is noted and is about the same. There are still so me spiculations from this area. It might be well to consider a repeat CT scan to compare with the Feb exam. There are no large effusions currently. No new infiltrates are seen. The heart is normal i n size. COPD is noted as usual. IMPRESSION: Minor changes since 05/02. POS: HOME
== END 2017-05-09 15:27 | disposition home or self-care (01) ==
LOC: BURRAD 15:26
PROVIDERS: ATTEND Family Medicine
DX: J86.9 Pyothorax without fistula (principal)
CPT/HCPCS: 71046

== ENCOUNTER 2019-10-05 13:07 | Emergency (ER) | payer MEDICARE, MEDICAID ==
[2019-10-05 14:28] LABS: Bilirubin Negative (Negative); Blood, Urine Negative (Negative); Clarity Clear (Clear); Glucose, Urine (Dipstick) Negative (Negative); Ketone, Urine Negative (Negative); Leukocyte Trace (Negative); Nitrite Negative (Negative); Protein, Urine (Dipstick) Negative (Neg-Trace); Specific Gravity, Urine 1.015 (1.005-1.030); Urobilinogen 0.2 mg/dL (Less than 2); pH, Urine 7.5 (5.0-9.0)
[2019-10-05 14:29] LABS: Bacteria/HPF Rare-Few HPF (None Seen); RBC/HPF None Seen HPF (0-3); Squamous Epithelial 0-3 HPF (0-3); WBC/HPF 0-3 HPF (0-3)
== END 2019-10-05 15:30 | disposition home or self-care (01) ==
LOC: BURERS 13:07
DX: M54.5 Low back pain (principal); F41.9 Anxiety disorder, unspecified; F41.0 Panic disorder [episodic paroxysmal anxiety]; F32.9 Major depressive disorder, single episode, unspecified; J44.9 Chronic obstructive pulmonary disease, unspecified; Z87.891 Personal history of nicotine dependence
CPT/HCPCS: 81003; 81015; 99283